=== PATIENT | male | born 1935 | race Caucasian/White ===

== ENCOUNTER → 2016-05-18 | Outpatient (CLI) | payer OTHER ==
--- NOTE | 2016-05-18 10:36 | DX ---
PA and lateral chest x-ray 1012 hours. History: Productive cough for one week with fatigue. Previous tobacco use. Rule out pneumonia. Findings: Comparison to April 23, 2014. Heart heart size remains within normal limits. Pulmonary vasculature is mildly prominent centrally si milar to the prior study. There is no consolidation, effusion, or pneumothorax. There is moderate dex troscoliosis mid thoracic spine that appears be slightly more prominent when compared to the prior st udy. There is no new compression fracture. Impression: 1. No active cardio pulmonary disease seen. 2. Moderate dextroscoliosis mid thoracic spine that appear slightly more prominent when compared to t he prior study.
== END ==
LOC: FIMAGING 10:10
PROVIDERS: ATTEND Emergency Medicine
DX: R05 Cough (principal); R53.83 Other fatigue; Z87.891 Personal history of nicotine dependence; M41.9 Scoliosis, unspecified